=== PATIENT | female | born 1950 | race Caucasian/White ===

== ENCOUNTER 2017-06-03 19:53 | Emergency (ER) | END 2017-06-04 02:19 | disposition left against medical advice (07) | DX: R06.02 Shortness of breath (principal); J44.9 Chronic obstructive pulmonary disease, unspecified; I10 Essential (primary) hypertension; F17.210 Nicotine dependence, cigarettes, uncomplicated | CPT/HCPCS: 36415; 71020; 80048; 84484; 85025; 85610; 85730; 93005; 94644; 94664; 96374; 99285; J2930 ==

== ENCOUNTER 2017-12-13 00:03 | Inpatient (IN) | END 2017-12-14 14:25 | disposition home or self-care (01) | DRG 192 ==